=== PATIENT | male | born 1940 | race Caucasian/White ===

== ENCOUNTER 2020-04-19 08:01 | Inpatient (IN) | payer MEDICARE, SELFPAY ==
[~2020-04-19] VITALS: Ht 172.7 cm; Wt 81.6 kg
[2020-04-19 08:01] VITALS: BP_SYST 147
--- NOTE | 2020-04-19 08:04 | NUR ---
Placed in room 2. Placed on library monitor, blood pressure machine and pulse oximeter. To gown for exam. Side rails up. Report given to NELI Vieira.
--- NOTE | 2020-04-19 08:25 | NUR ---
PORTABLE X-RAY AT THE BEDSIDE
--- NOTE | 2020-04-19 08:30 | NUR ---
PT BIBA WITH C/O GENERALIZED WEAKNESS FOR THE LAST 3 DAYS, REPORTS FEELING DIZZINESS AND SOB WHEN WALKING. PRESENTS TO ER AAOX4, V/S STABLE.
[2020-04-19 08:35] LABS: BASOPHILS % (AUTO) 0.5 % (0.0-2.0); EOSINOPHILS % (AUTO) 0.4 % (0.0-4.0); HEMATOCRIT 23.4 % (36-54); HEMOGLOBIN 7.7 g/dL (14.0-18.0); LYMPHOCYTES # (AUTO) 1.3 K/uL (1.0-5.5); LYMPHOCYTES % (AUTO) 15.5 % (20.5-51.5); MEAN CORPUSCULAR HEMOGLOBIN 30 pg (27-31); MEAN CORPUSCULAR HGB CONC 33 % (32-36); MEAN CORPUSCULAR VOLUME 90 fL (79.0-98.0); MONOCYTES # (AUTO) 0.7 K/uL (0.0-1.0); MONOCYTES % (AUTO) 7.8 % (1.7-9.3); NEUTROPHILS # (AUTO) 6.6 K/uL (1.8-7.7); NEUTROPHILS % (AUTO) 75.8 % (40.0-70.0); PLATELET COUNT (AUTO) 162 K/uL (130-430); RED BLOOD CELL COUNT(AUTO) 2.59 MIL/uL (4.2-6.2); RED CELL DISTRIBUTION WIDTH 14.9 % (9.0-15.0); WHITE BLOOD COUNT (AUTO) 8.7 K/uL (4.8-10.8)
--- NOTE | 2020-04-19 08:36 | NUR ---
Farhana Martinez, patient's called, would like update at , cell .
[2020-04-19 08:53] LABS: ANION GAP 12 (5-15); CALCIUM 8.3 mg/dL (8.4-11.0); CHLORIDE 102 mmol/L (98-107); CREATININE 0.97 mg/dL (0.55-1.30); GLUCOSE 226 mg/dL (70-99); INR 1.3 (0.80-1.20); POTASSIUM 4.1 mmol/L (3.5-5.1); PROTHROMBIN TIME 12.9 SECS (9.5-12.5); SODIUM SERUM 134 mmol/L (136-145); UREA NITROGEN, BLOOD 38 mg/dL (8-21)
[2020-04-19 08:58] LABS: ALANINE AMINOTRANSFERASE 18 U/L (12-78); ALBUMIN 3.4 g/dL (3.4-4.8); ASPARTATE AMINOTRANSFERASE 16 U/L (10-37); TOTAL BILIRUBIN 0.4 mg/dL (0.0-1.0)
[2020-04-19] MEDS ORDERED: ACETAMINOPHEN 325 MG TABLET PO ONE (09:00)
[2020-04-19] MEDS ORDERED: PANTOPRAZOLE SODIUM 80 MG in NS 100 ML IV ONE (09:15)
[2020-04-19] MEDS ORDERED: PANTOPRAZOLE SODIUM 40 MG/VIAL (PROTONIX) ONE (09:43)
--- NOTE | 2020-04-19 10:00 | NUR ---
SW PT'S HERMES FOR UPDATE, SHE STATES SHE WILL CALL BACK LATER FOR MORE INFORMATION
[2020-04-19] MEDS ORDERED: PANTOPRAZOLE SODIUM 40 MG in NS 50 ML IV SCH (10:15)
[2020-04-19 11:41] LABS: BILIRUBIN,URINE NEGATIVE (NEGATIVE); CLARITY/URINE CLEAR (CLEAR); COLOR,URINE YELLOW (YELLOW); GLUCOSE,URINE TRACE (NEGATIVE); KETONES,URINE TRACE (NEGATIVE); LEUKOCYTE ESTERASE ,URINE NEGATIVE (NEGATIVE); NITRITE, URINE NEGATIVE (NEGATIVE); PH,URINE 5.5 (5.0-8.0); PROTEIN URINE NEGATIVE (NEGATIVE); UROBILINOGEN,URINE 0.2 (0.2-1.0)
[2020-04-19 12:54] LABS: BLOOD, URINE TRACE (NEGATIVE)
[2020-04-19 13:02] LABS: RBC,URINE 0-3 /HPF (0-3); WBC,URINE 0-3 /HPF (0-3)
[2020-04-19 13:03] LABS: BACTERIA,URINE FEW /HPF (None Seen); MUCUS,URINE 1+ /LPF (None Seen)
[2020-04-19] MEDS ORDERED: SIMV20TA2 PO (14:02)
[2020-04-19] MEDS ORDERED: HYDR12.585 PO (14:02)
[2020-04-19] MEDS ORDERED: DABI150C PO (14:02)
[2020-04-19] MEDS ORDERED: MULT-1198 PO (14:02)
[2020-04-19] MEDS ORDERED: METF1000 PO (14:02)
[2020-04-19] MEDS ORDERED: FAMO40TA71 PO (14:02)
[2020-04-19] MEDS ORDERED: HYT1 PO (14:02)
[2020-04-19] MEDS ORDERED: METO25TA3 PO (14:02)
[2020-04-19] MEDS ORDERED: LISI10TA5 PO (14:02)
--- NOTE | 2020-04-19 14:02 | NUR ---
Medication reconciliation completed with information provided by HERMES ADAMES (). Any prior medication reconciliation on file was reviewed and corrected.
[2020-04-19] MEDS ORDERED: SIMETHICONE 40 MG/0.6 ML ML ONE (14:08)
--- NOTE | 2020-04-19 14:57 | NUR ---
PT TRANSPORTED TO GI LAB VIA [facility] ACCOMPANIED BY STAFF
--- NOTE | 2020-04-19 15:05 | NUR ---
REPORT CALLED TO [facility] FOR TELE BED 118A
--- NOTE | 2020-04-19 15:10 | NUR ---
Patient will be admitted to care of NATALIA. Admitted to TELE unit. Will go to room 118A. Belongings list completed. Complete and up to date summary report printed. SBAR report to be given at bedside with opportunity for questions.
[2020-04-19] MEDS ORDERED: BENZOCAINE 20% 0.5mL UD SPRAY MM ONE (15:18)
[2020-04-19] MEDS: fentaNYL CITRATE/PF 100 MCG/2 ML AMP ONE ×3 (15:20→15:27)
[2020-04-19] MEDS: MIDAZOLAM HCL 5 MG/5 ML VIAL ONE ×5 (15:20→15:42)
[2020-04-19] MEDS ORDERED: EPINEPHrine JECT 0.1 MG/ML SYR IVP ONE (15:20)
[2020-04-19 16:46] VITALS: BP_SYST 158
--- NOTE | 2020-04-19 17:00 | NUR ---
admitting notes rec patient awake alert back from gi lab. npo maintained. ivl in place and no infiltration noted. denies pain, no bleeding noted. bed to the lowest position and side rail up and locked. call light within reached.
[2020-04-19 17:29] LABS: BASOPHILS % (AUTO) 0.2 % (0.0-2.0); EOSINOPHILS % (AUTO) 0.3 % (0.0-4.0); HEMATOCRIT 24.5 % (36-54); HEMOGLOBIN 8.3 g/dL (14.0-18.0); LYMPHOCYTES # (AUTO) 1.2 K/uL (1.0-5.5); LYMPHOCYTES % (AUTO) 11.2 % (20.5-51.5); MEAN CORPUSCULAR HEMOGLOBIN 30 pg (27-31); MEAN CORPUSCULAR HGB CONC 34 % (32-36); MEAN CORPUSCULAR VOLUME 90 fL (79.0-98.0); MONOCYTES # (AUTO) 0.8 K/uL (0.0-1.0); MONOCYTES % (AUTO) 7.6 % (1.7-9.3); NEUTROPHILS # (AUTO) 8.7 K/uL (1.8-7.7); NEUTROPHILS % (AUTO) 80.7 % (40.0-70.0); PLATELET COUNT (AUTO) 143 K/uL (130-430); RED BLOOD CELL COUNT(AUTO) 2.73 MIL/uL (4.2-6.2); RED CELL DISTRIBUTION WIDTH 15.4 % (9.0-15.0); WHITE BLOOD COUNT (AUTO) 10.8 K/uL (4.8-10.8)
--- NOTE | 2020-04-19 19:00 | NUR ---
closing notes endorsed to night nurse re another unit of blood transfusion . resp easy and unlabored. bed to the the lowest position and side rails up and locked. call light within reached.
--- NOTE | 2020-04-19 19:35 | NUR ---
OPENING NOTE: RECEIVED SBAR REPORT FROM DAY SHIFT RN. PATIENT IS ALERT AND ORIENTED X 4. LAYING IN THE BED. BREATHING EVEN AND UNLABORED ON RA. NO S/S ACUTE DISTRESS NOTED. SAFETY AND FALL PRECAUTIONS ARE IN PLACE. CALL LIGHT IS WITH PATIENT. WILL CONTINUE TO MONITOR.
[2020-04-19 20:00] VITALS: BP_SYST 137
--- NOTE | 2020-04-19 22:55 | NUR ---
PRE-BLOOD TRANSFUSION VITAL SIGNS ARE WITHIN NORMAL LIMITS. BLOOD PRODUCT VERIFIED BY SECOND RN. TRANSFUSION BEGAN. PATIENT EDUCATED REGARDING S/S TRANSFUSION REACTIONS. PATIENT VERBALIZED UNDERSTANDING.
--- NOTE | 2020-04-19 23:26 | NUR ---
PAGED DR. CORRALES TO CLARIFY FFP ORDER.
--- NOTE | 2020-04-19 23:40 | NUR ---
SPOKE TO DR. BAE /PLASTICS ENGINEER MD FOR DR. CORRALES. SUGGESTED TO VERIFY FFP ORDER WITH .
[2020-04-20] VITALS: BP_SYST 141
--- NOTE | 2020-04-20 01:50 | NUR ---
BLOOD TRANSFUSION COMPLETED. PATIENT TOLERATED WELL. NO S/S ACUTE DISTRESS NOTED. SAFETY AND FALL PRECAUTION ARE IN PLACE . WILL MONITOR.
[2020-04-20] MEDS: D5NS 1,000 ML IV SCH ×4 (02:02→17:30)
--- NOTE | 2020-04-20 03:30 | NUR ---
RN ROUNDS: PATIENT IS IN THE BED, CURRENTLY SLEEPING. BREATHING IS EVEN AND UNLABORED ON RA. IVF INFUSING ORDERED RATE. NO SIGN OF INFILTRATION NOTED. SAFETY AND FALL PRECAUTION MAINTAINED. CALL LIGHT IS WITH PATIENT. WILL MONITOR PATIENT.
--- NOTE | 2020-04-20 06:22 | NUR ---
CLOSING NOTE: PATIENT IS AWAKE. IVF INFUSING ORDERED RATE PER MD. NO SIGN OF INFILTRATION NOTED. RESPIRATION IS EVEN AND UNLABORED ON RA. NO S/S ACUTE DISTRESS NOTED. BED IS IN LOWEST POSITION,LOCKED,AND CALL LIGHT IS WITH PATIENT. ALL NEEDS MET THROUGH OUT SHIFT. WILL ENDORSE PATIENT CARE TO DAY SHIFT RN.
[2020-04-20 06:58] LABS: HEMATOCRIT 26.4 % (36-54); HEMOGLOBIN 9.1 g/dL (14.0-18.0)
[2020-04-20 08:00] VITALS: BP_SYST 139
[2020-04-20 09:26] LABS: HEMATOCRIT 27.3 % (36-54); HEMOGLOBIN 9.1 g/dL (14.0-18.0)
[2020-04-20] MEDS: PANTOPRAZOLE SODIUM 40 MG in NS 50 ML IV SCH ×4 (09:42→21:04)
[2020-04-20 12:17] VITALS: BP_SYST 155
--- NOTE | 2020-04-20 13:21 | NUR ---
Nutrition Update Jose Manuel scale 17 noted. Pt admitted for Gastrointestinal Bleed Diet: Soft (Low Fiber/Daniels) Diet BMI: 27.4 kg/m2 RD to follow per nutrition care standards.
[2020-04-20 15:40] LABS: HEMATOCRIT 24.8 % (36-54); HEMOGLOBIN 8.5 g/dL (14.0-18.0)
[2020-04-20 16:19] VITALS: BP_SYST 130
--- NOTE | 2020-04-20 19:00 | NUR ---
closing notes pt resting comfortably. ivf infusing well on the r ac. no infiltration noted with the protonix drip. no sob noted. call light withn reached. bed to t he lowest position and side rails up and locked. seen by dr rubin this am, was nbot sent home today since once to observe overnight for any more bleeding/
--- NOTE | 2020-04-20 19:20 | NUR ---
OPENING NOTE: RECEIVED SBAR REPORT FROM DAY SHIFT RN. PATIENT IS ALERT AND ORIENTED X 4. LAYING IN THE BED. BREATHING EVEN AND UNLABORED ON RA. IV NOTED ON R AC. NO SING OF INFILTRATION AT THIS TIME. NO S/S ACUTE DISTRESS NOTED. SAFETY AND FALL PRECAUTIONS ARE IN PLACE. CALL LIGHT IS WITH PATIENT. WILL CONTINUE TO MONITOR.
[2020-04-20 20:00] VITALS: BP_SYST 148
--- NOTE | 2020-04-20 21:04 | NUR ---
IV MED STARTED. NO SIGN OF INFILTRATION NOTED AT THIS TIME.
[2020-04-20 22:18] LABS: HEMATOCRIT 25.3 % (36-54); HEMOGLOBIN 8.6 g/dL (14.0-18.0)
--- NOTE | 2020-04-20 23:10 | NUR ---
PATIENT ASSISTED TO BATHROOM. NO SIGN OF SOB. WALKED BACK TO BED SAFELY.
[2020-04-21] VITALS: BP_SYST 145
--- NOTE | 2020-04-21 01:30 | NUR ---
NEW IV STARTED ON R HAND. NO SIGN OF INFILTRATION NOTED. WILL MONITOR.
[2020-04-21] MEDS: PANTOPRAZOLE SODIUM 40 MG in NS 50 ML IV SCH (01:54)
--- NOTE | 2020-04-21 03:03 | NUR ---
RN ROUNDS: PATIENT IS IN BED, CURRENTLY SLEEPING. NO S/S ACUTE DISTRESS NOTED. SAFETY PRECAUTIONS IN PLACE. WILL MONITOR.
[2020-04-21 07:24] LABS: HEMATOCRIT 25.3 % (36-54); HEMOGLOBIN 8.7 g/dL (14.0-18.0)
--- NOTE | 2020-04-21 08:00 | NUR ---
OPENING NOTES ALERT, ORIENTED, VERBALIZED OF WANTED TO GO HOME. STATED HE AMBULATES TO THE BATHROOM, ASSISTED BY STAFF. NO GI BLEEDING NOTED. AWAITING FOR MD TO SEE PATIENT.
--- NOTE | 2020-04-21 10:00 | NUR ---
ELEVATED HEART RATE MED RECONCILIATION WAS NOT RECONCILED SINCE ADMISSION, PATIENT WAS A-FIB ON HEART MONITOR, UP TO 156/MIN FOR SECOND WHILE PATIENT WAS TRYING TO URINATE, BACK TO 85/MIN AFTER [address] LEMON COVERING FOR DR FISHER, SEEN BY MD. WITH ORDERED TO DISCHARGE AFTER A DOSE OF METOPROLOL AND HEART RATE STABLE.
[2020-04-21] MEDS ORDERED: METOPROLOL SUCCINATE 25 MG TAB.SR.24H (TOPROL XL) PO ONE (10:30)
[2020-04-21 11:24] VITALS: BP_SYST 140
[2020-04-21 11:31] VITALS: BP_SYST 140
[2020-04-21 11:48] LABS: HEMATOCRIT 25.4 % (36-54); HEMOGLOBIN 8.5 g/dL (14.0-18.0)
--- NOTE | 2020-04-21 12:30 | NUR ---
HEART RATE MONITORED PATIENT HR 80/MINUTE, STABLE CONTROLLED A-FIB.
--- NOTE | 2020-04-21 13:20 | NUR ---
D/C Patient Patient given medication reconciliation form and D/C instructions. Exit Care provided. Patient verbalized understanding. MD discussed with patient the results and treatment provided. Patient in stable condition, ID band removed. IV catheter removed, intact and dressing applied, no active bleeding. Rx of given. Patient educated on pain management. All belongings sent with patient.Ambulate with assist, pt made aware to hold his pradaxa till seen by MD in 1 week. continue all home meds except pradaxa.
--- NOTE | 2020-04-22 13:34 | NUR ---
Discharge Follow Up Phone Call Phoned patient, . Patient stated he was feeling better but tired. He has not contacted his PCP yet. He agreed to do so today. I stressed the importance of doing so as he is holding a medication until this appointment. I also reminded him about Dr Dickens's recommendation that he get another endoscopy in two months. He had not remembered discussing that. No other questions or concerns.
== END 2020-04-21 13:20 | disposition home or self-care (01) | DRG 378 ==
LOC: SED 08:01 → STU 10:41
PROVIDERS: ADMIT Internal Medicine Hospice and Palliative Medicine; ATTEND Internal Medicine Hospice and Palliative Medicine
PROC: 30233N1 Transfusion of Nonautologous Red Blood Cells into Peripheral Vein, Percutaneous Approach (ICD-10-PCS; 2020-04-19)
PROC: 0W3P8ZZ Control Bleeding in Gastrointestinal Tract, Via Natural or Artificial Opening Endoscopic (ICD-10-PCS; principal; 2020-04-19 15:00)
DX: K92.2 Gastrointestinal hemorrhage, unspecified (principal); D62 Acute posthemorrhagic anemia; R65.10 Systemic inflammatory response syndrome (SIRS) of non-infectious origin without acute organ dysfunction; K31.82 Dieulafoy lesion (hemorrhagic) of stomach and duodenum; I48.91 Unspecified atrial fibrillation; E11.9 Type 2 diabetes mellitus without complications; I10 Essential (primary) hypertension; K22.70 Barrett's esophagus without dysplasia; K22.2 Esophageal obstruction; N40.0 Benign prostatic hyperplasia without lower urinary tract symptoms; K44.9 Diaphragmatic hernia without obstruction or gangrene; Z79.01 Long term (current) use of anticoagulants; Z79.899 Other long term (current) drug therapy; Z20.828 Contact with and (suspected) exposure to other viral communicable diseases
CPT/HCPCS: 36415; 36430; 43255; 71045; 80053; 81000-TC; 83605; 84484; 85018-TC; 85025; 85610-TC; 86886; 86900; 86901; 86920; 87040-TC; 87086; 93005; 96365; 99291; C9113; G0378; J0171; J2250; J3010; P9021